=== PATIENT | male | born 1945 | race Caucasian/White ===

== ENCOUNTER 2021-12-19 13:09 | Outpatient (CLI) | payer MEDICARE, SELFPAY | END 2021-12-19 13:10 | disposition home or self-care (01) | LOC: CHSLAB 13:15 | PROVIDERS: PCP Family Medicine; Visit Provider Specialist | DX: C44.519 Basal cell carcinoma of skin of other part of trunk (principal) | CPT/HCPCS: 88305 ==

== ENCOUNTER 2022-12-13 00:50 | Day surgery (SDC) | payer MEDICARE, SELFPAY ==
[2022-12-04 15:08] VITALS: BMI 20.9
--- NOTE | 2022-12-04 15:22 | PC.NURSE ---
Report to the Outpatient Waiting Room, entrance under the green pavilion located off [facility], at time __0600____ on date ___12/13/22____. Planned Procedure Time: __0730 . Time changes happen often and if your time is changed the preop area will call you the afternoon before. - You and your visitor will be asked to self-screen and do not enter if you have any COVID symptoms. - A mask is optional within the hospital at this time. Patients may have clear liquids (water, carbonated beverages, clear teas, apple juice) until 3 hours prior to surgery (0430 AM) with a maximum of 20 ounces. - No food from midnight until time of surgery - Infants may have breast milk until 4 hours before surgery, formula 6 hours prior to surgery. - Children will be allowed to drink immediately following surgery. If applicable, please bring a bottle or sippy cup to assist with drinking. Juice, water, soda, and popsicles are readily available. For infants on formula, please bring formula the day of surgery. Pacifiers are allowed. Take the following medications with a SIP of water the morning of surgery: _GABAPENTIN, TRAMADOL, & NITROGLYCERIN IF NEEDED_ DO NOT STOP ANY OF YOUR OTHER PRESCRIPTION MEDICATIONS PRIOR TO SURGERY ?EXCEPT THE FOLLOWING Medications to discontinue _ASPIRIN PER DR. DUMONT'S INSTRUCTIONS__ Date to take last dose Please no make-up, nail kiswahili, hairspray, perfume, deodorant, or body powder the day of surgery. No jewelry (including any body piercings) or valuables the day of surgery, leave them at home. Please take a shower or bath the night before, or the morning of, surgery with an antibacterial soap. Wear comfortable, loose fitting clothing. Children are encouraged to wear pajamas. - Jewelry must be removed prior to entering the operating room. Rings and piercings that are not removed may be cut off. - The hospital will not accept responsibility for valuables. - Please leave all valuables, including medications, at home the day of surgery. If you are going home after surgery, a licensed medical delivery driver must drive you home. - NO public transportation without another adult if you receive anesthesia. - We recommend that an adult stay with you for 24 hours following discharge. - We also recommend that you do not drive, make important decision, drink alcoholic beverages, or take any drugs that were not prescribed by your health care provider for at least 24 hours after your discharge time. For Pediatric surgeries, we recommend two adults accompany the child home. Follow any additional instructions given to you from your surgeon. If you or anyone in your household have experienced Covid symptoms in the past week, please notify your surgeon or the nurse liaison at the phone number below for possible testing. Telephone instructions given to _PATIENT & SPOUSE__and asked if any additional questions and then verbalized understanding. Patient advised to call surgeon office or pre surgery nurse liaison [phone] if any additional questions.
--- NOTE | 2022-12-12 14:35 | WPDANESEPPF ---
Anes - Initial Pre Proc Eval Procedure: Operation Date: 12/13/22 07:30 Proposed Procedures p Left Partial Palmar Fasciectomy - Moncho Pedroza MD Date/Time: 12/12/22 14:35 Surgeon: Moncho Pedroza MD Pre Op Diagnosis: Dupuytrens contracture left palm Patient Data Age: 77 Gender: M Height: 1.8 m Weight: 68.18 kg Allergies Allergy/AdvReac Type Severity Reaction Status Date / Time piroxicam Allergy Mild ITCHING Verified 12/04/22 15:02 Home Medications Medication Instructions Recorded Confirmed Type lisinopril 10 mg tablet 10 mg PO DAILY 08/10/20 12/04/22 History aspirin 81 mg tablet,delayed 81 mg PO DAILY 12/04/22 12/04/22 History release gabapentin 100 mg capsule 100 mg PO TID 12/04/22 12/04/22 History nitroglycerin 0.4 mg sublingual 0.4 mg PRN PRN Chest Pain 12/04/22 12/04/22 History tablet rosuvastatin 20 mg tablet 20 mg DAILY 12/04/22 12/04/22 History tramadol 50 mg tablet 50 mg TID 12/04/22 12/04/22 History Patient hx anesthesia problems: none Family hx anesthesia problems: none Results Review: All pre-operative results and documents have been reviewed as part of the pre-operative evaluation. [facility] Past Medical History Medical History (Updated 08/10/20 @ 08:49 by Cinthya Ortega) Arthritis COPD (chronic obstructive pulmonary disease) Social History Social History (Updated 08/10/20 @ 08:32 by Felicia Carranza MA) Smoking packs per day: 0.5 Smoking cigarettes per day: 10.0 Years smoked: 60 Smoking pack-years: 30.00 Smoking status: Current every day smoker Tobacco type: cigarettes Second hand tobacco smoke exposure: Yes Alcohol intake: former Substance use: current Substance use type: marijuana Other substance usage details: 1 JOINT/DAY Last use: 12/03/22 Living arrangements: with family Spiritual care concerns: No Anes - Eval Final PreProcedure Day of Procedure 12/12/22 14:35 Patient weight: normal Heart: regular rate and rhythm Lungs: clear to auscultation Airway: Mallampati scale class II Neurological: alert and oriented Last oral intake: >/= 8 hours ASA classification: III Emergent: no Anesthetic plan: proceed Anesthesia type and monitoring: general LMA and standard monitoring Results Review: All pre-operative results and documents have been reviewed as part of the pre-operative evaluation. Informed Consent: The patient's anesthetic plan and its attendant risks and benefits were discussed with the patient/family/POA. Questions were solicited and answers provided to the satisfaction of the patient/family/POA.
[2022-12-13] VITALS (9 sets, daily range): BP systolic 99–134; BP diastolic 52–85; PULSE 66–95; RESP 12–20; TEMP 36.2–36.7; O2SAT 92–100
--- NOTE | 2022-12-13 05:50 | ECG_ITS ---
Measurements Intervals Bandy Rate: 58 P: 10 CA: 134 QRS: -6 QRSD: 97 T: 24 QT: 417 QTc: 411 Interpretive Statements SINUS BRADYCARDIA NO PREVIOUS ECG AVAILABLE FOR COMPARISON Electronically Signed On 12-13-2022 15:26:09 CDT by Gennaro Flores M.D.
[2022-12-13] MEDS: LACTATED RINGERS 1,000 ML 30 ML IV CONT (06:25)
--- NOTE | 2022-12-13 07:11 | WPDHPUPDATE1 ---
History and Physical Update Update Date/Time: 12/13/22 07:11 History and Physical has been reviewed, including an updated exam of the patient. There are NO changes in the patient's condition. Risks, benefits, and alternatives have been discussed and questions answered. Patient agrees to proceed with procedure.
[2022-12-13] MEDS: LIDO 1%/EPINEPHRINE 1:100,000 50 ML VIAL 8 ML INFILTRATE (07:38)
[2022-12-13] MEDS: ceFAZolin SODIUM 1 GM VIAL IV PUSH (08:06)
[2022-12-13] MEDS: BACITRACIN OINTMENT 15 GM TUBE 1 APPLIC TOPICAL (08:14)
--- NOTE | 2022-12-13 10:25 | P.OP_ITS ---
Procedure Note - Detailed Date of Procedure 12/13/22 Pre-op Diagnosis Dupuytrens contracture left palm Post-op Diagnosis Same Procedure Performed Left Partial Palmar Fasciectomy. 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 He was then transported to the operating room and placed supine on the operating table. He was given general anesthesia. The extremity was prepped and draped in usual fashion. The time-out was held confirmed. The on sites were examined once again and markings made for release in the palm and on the 3 fingers. His palm digits were anesthetized with 1% lidocaine with epinephrine approximately 6 milliliter . The extremity was exsanguinated and the tourniquet inflated 250 mmHg. Part procedure was done without the silicone hand and part made use of the silicone hand. The diagonal incision in the palm allowed access to the palmar cords. These were excised through a single incision. At the index middle and small fingers either midline incisions or Igor type incisions were made and skin flaps elevated. The neurovascular bundles were identified in each case. In each case the patient's cord tissue was removed. On the small finger this involved larger disease at the metacarpophalangeal joint and the ulnar aspect. On the middle and index fingers there were large pretendinous cords. There was no significant involvement with spiral cords. We tried to open the proximal interphalangeal joint as much as possible this involved the transverse incision in the sheath at 2 sites. Involved some passive extension of the proximal interphalangeal joints. On the middle finger the A3 valarie was opened and release of a small area of capsule on the radial side provided additional extension. The wound closed of 5 0 nylon to the plasty utilized. The tourniquet was up 100 minutes and released prior to final closure. The patient was given 2 g Ancef preop view of smoking history. A bulky bandage was applied without splint. He is discharged in stable condition. Being discharged home with a prescription for cephalexin 15... Estimated Blood Loss 10 Tourniquet Time 100 IV Fluids 10 Drains No Packing No Complications No immediate complications Condition Stable Disposition PACU
[2022-12-13] MEDS: fentaNYL CITRATE INJ (*CRX) 100 MCG/2 ML VIAL 25 MCG IV PUSH ×4 (10:34→10:54)
[2022-12-13] MEDS: oxyCODONE HCL (*CRX) 5 MG TAB IR PO (11:15)
== END 2022-12-13 11:55 | disposition home or self-care (01) ==
PROVIDERS: PCP Family Medicine; Visit Provider Plastic Surgery
PROC: (CPT 26045; principal; 2022-12-13 07:30)
DX: M72.0 Palmar fascial fibromatosis [Dupuytren] (principal); J44.9 Chronic obstructive pulmonary disease, unspecified; F17.210 Nicotine dependence, cigarettes, uncomplicated; F12.90 Cannabis use, unspecified, uncomplicated; Z79.82 Long term (current) use of aspirin
CPT/HCPCS: 26123; 26125 ×2; 93005; A9270; J0690; J2405; J2704; J3010; J7120

== ENCOUNTER 2022-12-28 14:03 | Outpatient (RCR) | payer MEDICARE, SELFPAY ==
--- NOTE | 2023-01-01 17:01 | BUOTOPEVAL ---
Assessment and note entered by Tanja Rendon OT Evaluation Information Assessment Status Evaluation Diagnosis S/p partial palmar fasciectomy Onset 12/13/2022 Subjective Information The patient reports 2/10 pain in L hand but prior to stitches being taken out, the pain was 10/10. The patient reports having a hard time picking up small things when stitches were in his hand. Patient prefers to be called Bill Reported Pain Level Pain Score 2: Self Report Assessment OT Clinical Summary The patient is a 77 year old male who was referred to outpatient OT due to s/p partial palmar fasciectomy of L hand. The patient's PMH includes but is not limited to diabetes, a-fib, arthritis. The patient previously demonstrated contractures of L hand affecting his strength and mobility. Due to the patient's surgery, the patient now demonstrates limited sensation of 5th digit of L hand, 2-10/10 pain, and severely limited digit AROM of L hand. The patient requires skilled OT to address these deficits and improve ability to manipulate objects during ADLs. Plan of Care Interventions Therapeutic Exercise,Manual Therapy,Neuro Re- education,Therapeutic Activities,Hot Pack/Cold Pack,Sensory Integrative Techn,Self-Care/Home Management,Ultrasound OT Services Indicated Yes Treatment Frequency and 2x/week for 10 visits. Duration These treatments will address the objective and functional deficits as defined above. The patient will be advanced safely and appropriately in order for the patient to progress towards his/her prior level of function. Additional exercises will be introduced and as well as a comprehensive home exercise program upon discharge, if needed, ?to ensure carryover of functional gains achieved in the clinic. This treatment plan has been reviewed and agreement upon by the patient.
== END 2023-01-18 23:59 | disposition home or self-care (01) ==
LOC: CHSOT 14:03
PROVIDERS: Visit Provider Plastic Surgery
DX: Z48.89 Encounter for other specified surgical aftercare (principal)
CPT/HCPCS: 97110; 97140; 97165